=== PATIENT | male | born 1980 | race Caucasian/White ===

== ENCOUNTER 2018-06-29 16:26 | Emergency (ER) | payer BC ==
[~2018-06-29] VITALS: Ht 175.3 cm; Wt 96.6 kg
[2018-06-29 17:54] VITALS: Ht 175.3 cm; Wt 96.6 kg
[2018-06-29 20:25] VITALS: BP 151/93
== END 2018-06-29 20:25 | disposition home or self-care (01) ==
LOC: ED 16:26
DX: R51 Headache (principal); G47.63 Sleep related bruxism; G89.29 Other chronic pain; M54.2 Cervicalgia
CPT/HCPCS: J1885